=== PATIENT | female | born 1970 | race American Indian/Alaskan Native ===

== ENCOUNTER 2016-06-04 09:11 | Outpatient (CLI) | payer OTHER | END 2016-06-04 09:12 | disposition home or self-care (01) | LOC: MERGE 09:11 → SPVWC 09:11 | PROVIDERS: ATTEND Preventive Medicine Public Health & General Preventive Medicine | DX: Z12.31 Encounter for screening mammogram for malignant neoplasm of breast (principal) | CPT/HCPCS: 77067; G0202 ==

== ENCOUNTER 2016-06-18 08:19 | Outpatient (CLI) | payer OTHER ==
--- NOTE | 2016-06-18 14:46 | Ultrasound Report ---
ULTRASOUND THYROID SCAN History: Hyperthyroidism. Findings: Grayscale imaging of the thyroid gland was performed. The thyroid gland is normal size, contour and echotexture. No cyst or mass is detected. Symmetric perfusion on color Doppler. Impression: Normal thyroid gland.
== END 2016-06-18 08:20 | disposition home or self-care (01) ==
LOC: SPVWC 08:19
PROVIDERS: ATTEND Family Medicine
DX: E05.90 Thyrotoxicosis, unspecified without thyrotoxic crisis or storm (principal)
CPT/HCPCS: 76536

== ENCOUNTER 2016-06-23 08:43 | Outpatient (CLI) | payer OTHER ==
--- NOTE | 2016-06-23 11:22 | Mammography Report ---
RIGHT DIGITAL DIAGNOSTIC MAMMOGRAM : 06/23/16 08:43:00 CLINICAL: Recalled for asymmetry. COMPARISON:06/04/16 screening FINDINGS: Lateralmedial and spot compression MLO and CC views were performed. The previously described asymmetry is smaller on the MLO view and is not identified on the spot CC or lateral views. IMPRESSION: Benign lymph node or cyst which has gotten smaller since the screening exam. BI-RADS CATEGORY: 2 - - Benign RECOMMENDATION: Return to routine mammographic screening. ACR BI-RADS MAMMOGRAPHIC CODES: 0 = Needs additional imaging evaluation; 1 = Negative; 2 = Benign; 3 = Probably benign; 4 = Suspicious; 5 = Malignant; 6 = Known biopsy-proven malignancy COMMENT: 1. Dense breast tissue, i.e., adenosis, fibrocystic changes, etc., may obscure an underlying neoplasm. 2. Approximately 10% of cancers are not detected with mammography. 3. A negative mammography report should not delay biopsy if a clinically suspicious mass is present. COMMENT: Patient follow-up letters are generated via our [employer] application.
== END 2016-06-23 08:44 | disposition home or self-care (01) ==
LOC: SPVWC 08:43
PROVIDERS: ATTEND Family Medicine
DX: R92.2 Inconclusive mammogram (principal)
CPT/HCPCS: G0206-RT